=== PATIENT | female | born 1970 | race Caucasian/White ===

== ENCOUNTER 2016-11-13 12:09 | Emergency (ER) | payer BC ==
[~2016-11-13] VITALS: Ht 162.6 cm; Wt 96.6 kg
[2016-11-13 16:05] VITALS: BP 135/76
== END 2016-11-13 16:05 | disposition home or self-care (01) ==
LOC: ED 12:09
DX: S39.011A Strain of muscle, fascia and tendon of abdomen, initial encounter (principal); X50.0XXA Overexertion from strenuous movement or load, initial encounter; Y93.89 Activity, other specified; Y92.89 Other specified places as the place of occurrence of the external cause; Y99.8 Other external cause status
CPT/HCPCS: J1885

== ENCOUNTER 2017-01-25 17:13 | Emergency (ER) | payer BC ==
[~2017-01-25] VITALS: Ht 165.1 cm; Wt 93.4 kg
[2017-01-25 20:19] VITALS: BP 140/84
== END 2017-01-25 20:00 | disposition home or self-care (01) ==
LOC: ED 17:13
DX: L03.311 Cellulitis of abdominal wall (principal); J45.909 Unspecified asthma, uncomplicated; I10 Essential (primary) hypertension; Z88.5 Allergy status to narcotic agent
CPT/HCPCS: 90715; J0696; J1885

== ENCOUNTER 2017-03-03 13:29 | Emergency (ER) | payer BC, OTHER ==
[2017-03-03 13:30] VITALS: BP 145/88
== END 2017-03-03 15:41 | disposition home or self-care (01) ==
LOC: ED 13:29
DX: L02.211 Cutaneous abscess of abdominal wall (principal); I10 Essential (primary) hypertension; Z88.5 Allergy status to narcotic agent
CPT/HCPCS: J2001

== ENCOUNTER 2018-10-02 18:16 | Emergency (ER) | payer BC, OTHER ==
[~2018-10-02] VITALS: Ht 170.2 cm; Wt 81.6 kg
[2018-10-02 18:22] VITALS: Ht 170.2 cm; Wt 81.6 kg
[2018-10-02 20:18] LABS: BASOPHIL % 0.6 % (0-2)
[2018-10-02 20:19] LABS: PLATELET COUNT 476 x10^3mcL (130-400); RED CELL DISTRIBUTION WIDTH 18.1 % (11.5-14.5)
[2018-10-02 20:30] LABS: CALCIUM 9.3 mg/dL (8.5-10.1); CARBON DIOXIDE 26.6 mmol/L (21-32); CHLORIDE SERUM 107 mmol/L (98-107); CREATININE SERUM 0.7 mg/dL (0.6-1.0); GFR1 > 60 mL/min; GLUCOSE SERUM 89 mg/dL (74-106); POTASSIUM SERUM 3.8 mmol/L (3.5-5.1); SODIUM SERUM 143 mmol/L (136-145)
[2018-10-02 20:35] LABS: ALBUMIN 3.7 g/dL (3.4-5.0); ALKALINE PHOSPHATASE 72 U/L (46-116); ALT/SGPT 14 U/L (14-59); AST/SGOT 8 U/L (15-37); BILIRUBIN TOTAL 0.14 mg/dL (0.20-1.00); CHOLESTEROL 180 mg/dL (<200); HDL CHOLESTEROL 60 mg/dL (40-60); LIPASE 117 IU/L (73-393); TOTAL PROTEIN, SERUM 7.9 g/dL (6.4-8.2); TRIGLYCERIDES 111 mg/dL (<150)
[2018-10-02 20:45] LABS: T3 TOTAL 1.01 ng/mL
[2018-10-02 20:47] LABS: microscopic required? YES; urine erythrocyte 1+ (NEGATIVE)
[2018-10-02 22:48] LABS: FREE T4 0.83 ng/dL (0.76-1.46); FREE THYROXINE INDEX 2.1 ug/dL (1.4-4.5); T4(THYROXINE) 6.3 ug/dL (4.7-13.3)
[2018-10-03] VITALS: BP 136/75
== END 2018-10-03 | disposition home or self-care (01) ==
LOC: ED 18:16
PROVIDERS: Specialist
DX: R07.89 Other chest pain (principal); J45.909 Unspecified asthma, uncomplicated; I10 Essential (primary) hypertension; Z98.890 Other specified postprocedural states; Z88.5 Allergy status to narcotic agent
CPT/HCPCS: 83880; 84439; 85378; J1885; J7030; Q0092; Q9967